=== PATIENT | female | born 1950 | race Two or more races ===

== ENCOUNTER 2016-05-12 08:31 | Day surgery (SDC) | payer MEDICARE, BC ==
[~2016-05-12 08:31] MED LIST: PROPOFOL INJ 200 MG/20 ML VIAL IV ONE
[2016-05-12 10:43] VITALS: BP 130/50
--- NOTE | 2016-05-12 13:20 | Operative Report ---
Operative Report DATE OF SURGERY: 05/12/16 Operative Report: The risks, benefits and alternatives of the procedure including risks of bleeding, perforation requiring surgery are explained to the patient detail and informed consent is obtained. Patient is taken back to the endoscopy suite and placed in a left, lateral decubital position. Timeout is called. Propofol medication is administered. A rectal examination was done which did not reveal any masses, tears or fissures. An Olympus videoscope was inserted into the patient's rectum. The scope was then gradually advanced all the way to the cecum. The cecum was identified by the usual anatomical landmarks of the ileocecal valve as well as appendiceal office. Photodocumentation is obtained. Prep is good. Scope was then sequentially pulled back via the rest segments of the colon including the ascending colon, back flexure, transverse colon, splenic flexure, descending colon and finally into the rectosigmoid portions of the colon. Retroflexion maneuvers performed. PREOPERATIVE DIAGNOSIS: Colorectal cancer screening. POSTOPERATIVE DIAGNOSIS: Small rectal polyp which is removed via snare polypectomy. Mild right-sided inflammation status post biopsy rule out collagenous, microscopic, lymphocytic colitis. Internal hemorrhoids OPERATION: Colonoscopy with snare polypectomy. Colonoscopy with biopsy SURGEON: PIPE HORN ANESTHESIA: LMAC TISSUE REMOVED OR ALTERED: Colon polyp retrieved. Right-sided mucosal specimens obtained COMPLICATIONS: None. ESTIMATED BLOOD LOSS: none. INTRAOPERATIVE FINDINGS: As described above. PROCEDURE: Patient tolerated the procedure well. No immediate postprocedure complications are noted. Patient is discharged in good condition. Discharge date 05/12/2016. Discharge diet: Regular. Discharge activity: Regular. Patient is instructed to call the office or proceed to the emergency room should there be any further problems or questions. We'll await on biopsies. 2-3 week follow-up to discuss findings. Surveillance colonoscopy in 5 years depending on the pathology of the polyp.
== END 2016-05-12 10:50 | disposition home or self-care (01) ==
LOC: END 08:31
PROVIDERS: ATTEND Internal Medicine Gastroenterology
PROC: 0DBF8ZX Excision of Right Large Intestine, Via Natural or Artificial Opening Endoscopic, Diagnostic (ICD-10-PCS; principal; 2016-05-12 10:00)
PROC: 0DBP8ZX Excision of Rectum, Via Natural or Artificial Opening Endoscopic, Diagnostic (ICD-10-PCS; 2016-05-12 10:00)
DX: Z12.11 Encounter for screening for malignant neoplasm of colon (principal); K63.89 Other specified diseases of intestine; K62.1 Rectal polyp; K52.9 Noninfective gastroenteritis and colitis, unspecified; K64.8 Other hemorrhoids; E03.9 Hypothyroidism, unspecified; F90.9 Attention-deficit hyperactivity disorder, unspecified type; F43.10 Post-traumatic stress disorder, unspecified; N18.9 Chronic kidney disease, unspecified; D64.9 Anemia, unspecified; E66.9 Obesity, unspecified; Z68.37 Body mass index [BMI] 37.0-37.9, adult; Z88.8 Allergy status to other drugs, medicaments and biological substances; Z79.899 Other long term (current) drug therapy
CPT/HCPCS: 45380; 45385; 88305 ×2; J2704; 810

== ENCOUNTER → 2016-12-29 | Outpatient (CLI) | payer MEDICARE, BC ==
--- NOTE | 2016-12-29 17:17 | RADIOLOGY REPORT (SQ) ---
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 TECHNIQUE: AP, lateral, and both oblique radiographic images acquired of the right knee. LIMITATIONS: None. FINDINGS: MINERALIZATION: Normal. BONES: Total knee arthroplasty has been revised. JOINT: No effusion. SOFT TISSUES: No soft tissue swelling. No radio-opaque foreign body. OTHER: No other significant finding. IMPRESSION: Total knee arthroplasty. TECHNICAL DOCUMENTATION: JOB ID: [id number] [employer] All Rights Reserved
== END ==
LOC: RAD 15:46
PROVIDERS: ATTEND Obstetrics & Gynecology
DX: G89.29 Other chronic pain (principal); Z96.653 Presence of artificial knee joint, bilateral

== ENCOUNTER 2017-02-25 20:36 | Emergency (ER) | payer MEDICARE, BC ==
--- NOTE | 2017-02-25 21:31 | RADIOLOGY REPORT (SQ) ---
EXAM DESCRIPTION: CHEST SINGLE VIEW COMPLETED DATE/TIME: 02/25/2017 9:23 pm REASON FOR STUDY: difficulty breathing COMPARISON: 03/07/2014. EXAM PARAMETERS: NUMBER OF VIEWS: One view. TECHNIQUE: Single frontal radiographic view of the chest acquired. RADIATION DOSE: NA LIMITATIONS: None. FINDINGS: LUNGS AND PLEURA: No opacities, masses or pneumothorax. No pleural effusion. MEDIASTINUM AND HILAR STRUCTURES: No masses. Contour normal. HEART AND VASCULAR STRUCTURES: Heart normal in size. Normal vasculature. BONES: No acute findings. HARDWARE: Sternotomy wires and prosthetic valves. Hardware in the right shoulder. OTHER: No other significant finding. IMPRESSION: NO ACUTE RADIOGRAPHIC FINDING IN THE CHEST. TECHNICAL DOCUMENTATION: JOB ID: [id number] [employer]- All Rights Reserved
[2017-02-25 22:34] LABS: ABSOLUTE BASOPHILS # (AUTO) 0.2 10^3/uL (0.0-0.2); ABSOLUTE EOSINOPHILS # (AUTO) 0.2 10^3/uL (0.0-0.6); ABSOLUTE MONOCYTES (AUTO) 0.7 10^3/uL (0.1-1.4); ABSOLUTE NEUT (AUTO) 9.5 10^3/uL (1.7-8.2); BASOPHILS % (AUTO) 1.5 % (0-2); EOSINOPHILS % (AUTO) 1.4 % (0-6); HEMATOCRIT 33.5 % (36.0-47.0); HEMOGLOBIN 10.5 g/dL (12.0-15.5); LYMPHOCYTES % (AUTO) 16.1 % (13-45); MEAN CORPUSCULAR HEMOGLOBIN 25.8 pg (27.0-33.4); MEAN CORPUSCULAR HGB CONC 31.2 g/dL (32.0-36.0); MEAN CORPUSCULAR VOLUME 83 fl (80-97); MONOCYTES % (AUTO) 5.6 % (3-13); PLATELET COUNT 412 10^3/uL (150-450); RED BLOOD COUNT 4.05 10^6/uL (3.72-5.28); SEGMENTED NEUTROPHILS % (AUTO) 75.4 % (42-78); TOTAL CELLS COUNTED % (AUTO) 100 %; WHITE BLOOD COUNT 12.6 10^3/uL (4.0-10.5)
[2017-02-25 22:42] LABS: APPEARANCE,URINE CLEAR; BILIRUBIN,URINE NEGATIVE (NEGATIVE); COLOR,URINE STRAW; GLUCOSE, URINE NEGATIVE (NEGATIVE); KETONES,URINE NEGATIVE (NEGATIVE); LEUKOCYTE ESTERASE,URINE SMALL (NEGATIVE); NITRITE,URINE NEGATIVE (NEGATIVE); PROTEIN,URINE NEGATIVE (NEGATIVE); URINE SPECIFIC GRAVITY 1.008; UROBILINOGEN,URINE NEGATIVE mg/dL (<2.0)
[2017-02-25 23:08] LABS: CREATINE KINASE MB 0.56 ng/mL (<4.55); NT PRO BNP 551 pg/mL (5-900)
[2017-02-25 23:11] LABS: TROPONIN I < 0.012 ng/mL
[2017-02-25 23:35] LABS: ALANINE AMINOTRANSFERASE 19 U/L (9-52); ALKALINE PHOSPHATASE 115 U/L (38-126); ANION GAP 18 (5-19); ASPARTATE AMINO TRANSFERASE 47 U/L (14-36); BILIRUBIN,DIRECT 0.3 mg/dL (0.0-0.4); BILIRUBIN,TOTAL 0.4 mg/dL (0.2-1.3); BLOOD UREA NITROGEN 17 mg/dL (7-20); CALCIUM 9.9 mg/dL (8.4-10.2); CARBON DIOXIDE 29 mmol/L (22-30); CHLORIDE 99 mmol/L (98-107); CREATINE KINASE 31 U/L (30-135); GLUCOSE 156 mg/dL (75-110); POTASSIUM 3.1 mmol/L (3.6-5.0); SODIUM 146.4 mmol/L (137-145); TOTAL PROTEIN 8.6 g/dL (6.3-8.2)
[2017-02-26 04:00] LABS: FREE T4 (FREE THYROXINE) 1.35 ng/dL (0.78-2.19)
[2017-02-26 04:14] LABS: THYROID STIMULATING HORMONE 2.37 uIU/mL (0.47-4.68)
--- NOTE | 2017-02-26 04:55 | ER Document Report ---
ED General - General Chief Complaint: Shortness Of Breath Stated Complaint: SHORTNESS OF BREATH Time Seen by Provider: 02/26/17 02:04 Notes: Patient is a 67-year-old female presents to the ER with complaint of feeling short of breath and weak. Patient says this has been an intermittent problem that she has had for over a year. She says that it has been worse in the last week therefore she is come to the ER. She does have history of atrial and mitral valve replacement. She is followed by Dr. Barnes. She says she is due for repeat echo. She denies any chest pain. No headache. No weakness or numbness to extremities. No other complaints at this time. No recent fevers or infections. She is on thyroid medication. She denies any recent changes in the dosages of her medications. She says despite her having weakness and similar symptoms in the past she has not talked to her doctor about this. TRAVEL OUTSIDE OF THE [place] IN LAST 30 DAYS: No - Related Data Allergies/Adverse Reactions: levofloxacin [From Levaquin] Allergy (Intermediate, Verified 05/12/16 08:42) Blisters fexofenadine HCl [From Sarah-D 24 Hour] Adverse Reaction (Severe, Verified 08:42) pseudoephedrine HCl [From [facility] 24 Hour] Adverse Reaction (Severe, Verified 05/12/16 08:42) Past Medical History - Social History Smoking Status: Former Smoker Chew tobacco use (# tins/day): No Frequency of alcohol use: None Drug Abuse: None Family History: Reviewed & Not Pertinent Patient has suicidal ideation: No Patient has homicidal ideation: No - Past Medical History Cardiac Medical History: Reports: Hx Congestive Heart Failure Denies: Hx Atrial Fibrillation, Hx Coronary Artery Disease, Hx Heart Attack - CHF, Hx Hypercholesterolemia, Hx Hypertension, Hx Peripheral Vascular Disease , Hx Pulmonary Embolism, Hx Heart Murmur Pulmonary Medical History: Denies: Hx Asthma, Hx Bronchitis, Hx COPD, Hx Pneumonia, Hx Respiratory Failure, Hx Sleep Apnea, Hx Tuberculosis Neurological Medical History: Denies: Hx Cerebrovascular Accident, Hx Seizures Renal/ Medical History: Denies: Hx Peritoneal Dialysis Malignancy Medical History: Denies: Hx Lung Cancer GI Medical History: Reports: Hx Gastroesophageal Reflux Disease. Denies: Hx Hepatitis, Hx Hiatal Hernia, Hx Ulcer Musculoskeltal Medical History: Denies Hx Arthritis, Denies Hx Fibromyalgia, Denies Hx Muscular Dystrophy, Reports Hx Musculoskeletal Trauma Psychiatric Medical History: Reports: Hx Depression Traumatic Medical History: Denies: Hx Fractures Infectious Medical History: Denies: Hx Hepatitis Past Surgical History: Reports: Hx Cardiac Surgery, Hx Section, Hx Hysterectomy, Hx Open Heart Surgery - aorta replacement/mitral valve repair 2012, Hx Orthopedic Surgery - right knee, Hx Tonsillectomy. Denies: Hx Appendectomy, Hx Bowel Surgery, Hx Cholecystectomy, Hx Coronary Artery Bypass Graft, Hx Gastric Bypass Surgery, Hx Herniorrhaphy, Hx Mastectomy, Hx Pacemaker , Hx Tubal Ligation - Immunizations Immunizations up to date: Yes Hx Diphtheria, Pertussis, Tetanus Vaccination: No - UNSURE Hx Pneumococcal Vaccination: 02/17/08 Review of Systems - Review of Systems Notes: My Normal Review Basic REVIEW OF SYSTEMS: CONSTITUTIONAL : Denies fever, chills, or sweats. Denies recent illness. EENT: Denies eye, ear, throat, or mouth pain or symptoms. Denies nasal or sinus congestion. CARDIOVASCULAR: Denies chest pain. RESPIRATORY: Some shortness of breath. GASTROINTESTINAL: Denies abdominal pain. Denies nausea, vomiting, or diarrhea. Denies constipation. Last BM: GENITOURINARY: Denies difficulty urinating, painful urination, burning, frequency, or blood in urine. FEMALE GENITOURINARY: Denies vaginal bleeding, abnormal or irregular periods. MUSCULOSKELETAL: Denies neck or back pain or joint pain or swelling. SKIN: Denies rash or skin lesions. HEMATOLOGIC : Denies easy bruising or bleeding. LYMPHATIC: Denies swollen, enlarged glands. NEUROLOGICAL: Denies altered mental status or loss of consciousness. Denies headache. Denies weakness or paralysis or loss of use of either side. Denies problems with gait or speech. Denies sensory or motor loss. ALL OTHER SYSTEMS REVIEWED AND NEGATIVE. Physical Exam - Vital signs Vitals: Temp Pulse Resp BP Pulse Ox 97.6 F 87 18 121/48 L 98 02/25/17 20:58 02/25/17 20:58 02/25/17 20:58 02/25/17 20:58 02/25/17 20:58 - Notes Notes: General Appearance: Well nourished, alert, cooperative, no acute distress, no obvious discomfort. Well-appearing. Vitals: reviewed, See vital signs table. Head: no swelling or tenderness to the head Eyes: PERRL, EOMI, Conjuctiva clear Mouth: No decreasd moisture Lungs: No wheezing, No rales, No rhonci, No accessory muscle use, good air exchange bilaterally. Heart: Normal rate, Regular rythm, No murmur, no rub Abdomen: Normal BS, soft, No rigidity, No abdominal tenderness, No guarding, no rebound, no abdominal masses, no organomegaly Extremities: strength 5/5 in all extremities, good pulses in all extremities, no swelling or tenderness in the extremities, no edema. Skin: warm, dry, appropriate color, no rash Neuro: speech clear, oriented x 3, normal affect, responds appropriately to questions. She is able to walk back to the bathroom without appearing short of breath without any disturbance in her gait. Renal nerves II through XII are intact. Distal sensation intact. Patient is good strength in all 4 extremities. Course - Re-evaluation Re-evalutation: 02/26/17 05:43 I do not know the exact cause the patient's symptoms. She says at home that she gets very short of breath and can barely walk; however, at the end of her stay here she was walking on the bathroom was walking normally without any signs of weakness nor shortness of breath. She looks very well. She was never short of breath here in the ER on my evaluation and her oxygen saturation and heart rate are normal. Laboratory evaluation is unremarkable. She does have a history of some heart valve replacement. I encouraged her follow-up with Dr. Barnes for reevaluation and to discuss her symptoms with him. She is also due for repeat echocardiogram at night explained to her that this important that she does have this repeated as sometimes abnormalities on her echo could be leading to some weakness and fatigue. Not convinced that that is exactly was causing her symptoms being that it sounds that she has had these symptoms recurrently and intermittently for a long time now. Patient agrees with plan will be discharged home. Encouraged to return to ER immediately if she has worsening of her symptoms, chest pain, fevers, or feels unwell. Dictation of this chart was performed using voice recognition software; therefore, there may be some unintended grammatical errors. - Vital Signs Vital signs: Temp Pulse Resp BP Pulse Ox 98 F 101 H 16 126/70 H 100 02/26/17 05:30 02/26/17 05:30 02/26/17 05:30 02/26/17 05:30 02/26/17 05:30 - Laboratory Result Diagrams: 02/25/17 22:20 02/25/17 22:20 Laboratory results interpreted by me: 02/25/17 02/25/17 02/25/17 22:20 22:20 22:20 WBC 12.6 H Hgb 10.5 L Hct 33.5 L MCH 25.8 L MCHC 31.2 L RDW 15.0 H Absolute Neutrophils 9.5 H Sodium 146.4 H Potassium 3.1 L Est GFR (Non-Af Amer) 54 L Glucose 156 H AST 47 H Total Protein 8.6 H Ur Leukocyte Esterase SMALL H Discharge - Discharge Clinical Impression: Weakness, Hypokalemia Condition: Good Disposition: HOME, SELF-CARE Additional Instructions: Please follow up with your primary care doctor as well as Dr. Barnes (your pharmacy benefit manager) for reevaluation. Please talk to Dr. Barnes about your symptoms and ask him about having your repeat echocardiogram to check your valves. Please return to the ER immediately if you have severe chest pain, fevers, or worsening of your symptoms. Prescriptions: Potassium Chloride 20 meq PO DAILY #7 [email or web address] Forms: Return to Work Referrals: GERA GATICA MD [Primary Care Provider] - Follow up as needed
[2017-02-26 05:33] VITALS: BP 126/70
--- NOTE | 2017-02-26 07:52 | EKG REPORT ---
SEVERITY:- ABNORMAL ECG - SINUS RHYTHM PROBABLE LVH WITH SECONDARY REPOL ABNRM : Confirmed by: Phill Diehl MD 26-Feb-2017 07:52:09
== END 2017-02-26 05:27 | disposition home or self-care (01) ==
LOC: ER 20:36
DX: E87.6 Hypokalemia (principal); R06.02 Shortness of breath; R53.1 Weakness; Z95.2 Presence of prosthetic heart valve; Z79.899 Other long term (current) drug therapy; Z88.1 Allergy status to other antibiotic agents; Z87.891 Personal history of nicotine dependence
CPT/HCPCS: 36415; 71045; 80053; 81001; 82550; 82553; 83735; 83880; 84439; 84443; 84484; 85025; 93005; 93010; 99285

== ENCOUNTER → 2017-03-23 | Outpatient (CLI) | payer MEDICARE, BC ==
[2017-03-23 18:14] LABS: ABSOLUTE EOSINOPHILS # (AUTO) 0.2 10^3/uL (0.0-0.6); ABSOLUTE LYMPHOCYTES (AUTO) 1.4 10^3/uL (0.5-4.7); ABSOLUTE MONOCYTES (AUTO) 0.5 10^3/uL (0.1-1.4); ABSOLUTE NEUT (AUTO) 5.6 10^3/uL (1.7-8.2); BASOPHILS % (AUTO) 0.5 % (0-2); HEMATOCRIT 28.9 % (36.0-47.0); HEMOGLOBIN 9.4 g/dL (12.0-15.5); LYMPHOCYTES % (AUTO) 18.2 % (13-45); MEAN CORPUSCULAR HEMOGLOBIN 26.6 pg (27.0-33.4); MEAN CORPUSCULAR HGB CONC 32.7 g/dL (32.0-36.0); MEAN CORPUSCULAR VOLUME 81 fl (80-97); MONOCYTES % (AUTO) 6.3 % (3-13); PLATELET COUNT 224 10^3/uL (150-450); RED BLOOD COUNT 3.55 10^6/uL (3.72-5.28); RED CELL DISTRIBUTION WIDTH 17.3 % (11.5-14.0); TOTAL CELLS COUNTED % (AUTO) 100 %; WHITE BLOOD COUNT 7.8 10^3/uL (4.0-10.5)
[2017-03-23 18:22] LABS: ARTERIAL BLOOD BASE EXCESS 5.1 mmol/L; ARTERIAL BLOOD H2CO3 1.45 mmol/L (1.05-1.35); ARTERIAL BLOOD HCO3 30.4 mmol/L (20-26); ARTERIAL BLOOD O2 SATURATION 96.5 % (94-98); ARTERIAL BLOOD PCO2 48.2 mmHg (35-45); ARTERIAL BLOOD PH 7.42 (7.35-7.45); ARTERIAL BLOOD PO2 85.3 mmHg (80-100); ARTERIAL BLOOD TOTAL CO2 31.8 mmol/L (21-25)
[2017-03-23 18:23] LABS: ARTERIAL BLOOD FIO2 ROOM AIR
[2017-03-23 18:33] LABS: A TYPE INFLUENZA AG NEGATIVE (NEGATIVE); B INFLUENZA AG NEGATIVE (NEGATIVE)
[2017-03-23 18:41] LABS: ALANINE AMINOTRANSFERASE 28 U/L (9-52); ALBUMIN 4.1 g/dL (3.5-5.0); ALKALINE PHOSPHATASE 91 U/L (38-126); ANION GAP 9 (5-19); ASPARTATE AMINO TRANSFERASE 27 U/L (14-36); BILIRUBIN,DIRECT 0.3 mg/dL (0.0-0.4); BILIRUBIN,TOTAL 0.3 mg/dL (0.2-1.3); BLOOD UREA NITROGEN 14 mg/dL (7-20); CALCIUM 9.3 mg/dL (8.4-10.2); CARBON DIOXIDE 32 mmol/L (22-30); CHLORIDE 100 mmol/L (98-107); GLUCOSE 118 mg/dL (75-110); POTASSIUM 3.8 mmol/L (3.6-5.0); SODIUM 141.4 mmol/L (137-145); TOTAL PROTEIN 6.5 g/dL (6.3-8.2)
[2017-03-23 18:50] LABS: NT PRO BNP 625 pg/mL (5-900)
[2017-03-23 18:52] LABS: TROPONIN I < 0.012 ng/mL
== END ==
LOC: OD 17:30
PROVIDERS: ATTEND Obstetrics & Gynecology
DX: I50.9 Heart failure, unspecified (principal); R06.02 Shortness of breath; I35.0 Nonrheumatic aortic (valve) stenosis; R53.82 Chronic fatigue, unspecified
CPT/HCPCS: 36415; 36600; 80053; 82803; 83880; 84443; 84484; 85025; 87804

== ENCOUNTER → 2017-03-26 | Outpatient (CLI) | payer MEDICARE, BC ==
--- NOTE | 2017-03-26 19:38 | XCELERA REPORT ---
[address] [address] Transthoracic Echocardiogram Report Name: APRIL WALL Age: 67 yrs Gender: Female : 1950 Patient Status: Outpatient Patient Location: Study Date: 03/26/2017 11:27 AM Height: 56 in Weight: 157 lb BSA: 1.6 m2 Procedure: A complete two-dimensional transthoracic echocardiogram was performed (2D, M-mode, spectral and color flow Doppler). The study was technically difficult with many images being suboptimal in quality. Reason For Study: /AVR Ordering Physician: DEBI WARREN Performed By: Lillian Mcpherson Interpretation Summary The study was technically difficult with many images being suboptimal in quality. The left ventricular ejection fraction is normal. There is mild to moderate concentric left ventricular hypertrophy. The left ventricle is grossly normal size. Doppler measurements suggest pseudonormalized left ventricular relaxation, which is associated with grade II/IV or mild to moderate diastolic dysfunction Regional wall motion abnormalities cannot be excluded due to limited visualization. The right ventricle is not well visualized secondary to technical limitations Right ventricular function cannot be assessed due to poor image quality. The left atrium is moderately dilated. The mitral valve has been surgically repaired / nnuloplasty suspected. There is a moderate amount of mitral regurgitation There is mild to moderate mitral stenosis Mitral valve area 1.8 cm/sq There is a bioprosthetic aortic valve. No aortic regurgitation is present. There is mild aortic stenosis There is a peak gradient of 32 mm of Hg. There is a mild amount of tricuspid regurgitation There is moderate pulmonary hypertension by echo Right ventricular systolic pressure is estimated to be elevated at 50- 60mmHg. The aortic root is not well visualized. The inferior vena cava was not well visualized Minimal pericardial effusion. MMode/2D Measurements & Calculations RVDd: 2.5 cm LVIDd: 4.5 cm FS: 33.7 % Ao root diam: 2.3 cm IVSd: 1.5 cm LVIDs: 3.0 cm EDV(Teich): 92.6 ml LVPWd: 1.5 cm ESV(Teich): 34.6 ml Ao root area: 4.3 cm2 EF(Teich): 62.7 % LVOT diam: 1.9 cm LVOT area: 2.9 cm2 Doppler Measurements & Calculations MV E max milo: MV dec slope: Ao V2 max: LV V1 max P.7 cm/sec 402.0 cm/sec2 281.6 cm/sec 24.6 mmHg MV A max milo: MV dec time: Ao max PG: LV V1 mean P.1 cm/sec 0.42 sec 31.7 mmHg 13.9 mmHg MV E/A: 1.4 Ao V2 mean: LV V1 max: 191.8 cm/sec 248.1 cm/sec Ao mean PG: LV V1 mean: 17.0 mmHg 172.1 cm/sec Ao V2 VTI: 59.9 cmLV V1 VTI: 57.6 cm YESY(I,D): 2.8 cm2 YESY(V,D): 2.6 cm2 SV(LVOT): 167.6 ml PA V2 max: TR max milo: 92.3 cm/sec 293.6 cm/sec PA max P.4 mmHg TR max P.7 mmHg Left Ventricle The left ventricle is grossly normal size. There is mild to moderate concentric left ventricular hypertrophy. The left ventricular ejection fraction is normal. Doppler measurements suggest pseudonormalized left ventricular relaxation, which is associated with grade II/IV or mild to moderate diastolic dysfunction. Regional wall motion abnormalities cannot be excluded due to limited visualization. Right Ventricle The right ventricle is not well visualized secondary to technical limitations. Right ventricular function cannot be assessed due to poor image quality. Atria Right atrium not well visualized secondary to technical limitations. The left atrium is moderately dilated. Mitral Valve There is severe mitral annular calcification. There is moderate mitral leaflet calcification. There is mild to moderate mitral stenosis. Mitral valve area 1.8 cm/sq. There is a moderate amount of mitral regurgitation. The mitral valve has been surgically repaired and an annuloplasty ring sewn in place. Aortic Valve The aortic valve is not well visualized secondary to technical limitations. There is mild aortic stenosis. There is a peak gradient of 32 mm of Hg. No aortic regurgitation is present. There is a bioprosthetic aortic valve. Tricuspid Valve The tricuspid valve is not well visualized secondary to technical limitations. There is no tricuspid stenosis. There is a mild amount of tricuspid regurgitation. There is moderate pulmonary hypertension by echo. Right ventricular systolic pressure is estimated to be elevated at 50- 60mmHg. Pulmonic Valve The pulmonic valve is not well visualized. Great Vessels The aortic root is not well visualized. The inferior vena cava was not well visualized. Effusions Minimal pericardial effusion. : DEBI WARREN > Flakita Jones
== END ==
LOC: SP 11:20
PROVIDERS: ATTEND Specialist
DX: I35.0 Nonrheumatic aortic (valve) stenosis (principal)
CPT/HCPCS: 93306